=== PATIENT | male | born 1985 | race Caucasian/White ===

== ENCOUNTER 2019-07-02 06:52 | Day surgery (SDC) | payer OTHER ==
[2019-07-02] MEDS ORDERED: CEFAZOLIN 2 GM/50 ML (PMX) 50 ML IVPB (07:00)
[2019-07-02] MEDS: SOD CHLORIDE 0.9% 1,000 ML IV (07:43)
[2019-07-02] MEDS ORDERED: BUPIVACAINE 0.25% (MPF) 30 ML INJ (09:21)
[2019-07-02] MEDS ORDERED: MIDAZOLAM 1 MG/ML 2 ML INJ (09:45)
[2019-07-02] MEDS ORDERED: PROPOFOL 200 MG INJ (09:45)
[2019-07-02] MEDS ORDERED: FENTAnyl 50 MCG/ML VIAL (09:45)
[2019-07-02] MEDS ORDERED: LIDOCAINE 2% (SDV) 5 ML INJ (09:45)
[2019-07-02] MEDS: BUPIVACAINE 0.5% (SDV) 30 ML INJ (10:01)
[2019-07-02] MEDS: LIDOCAINE 2% (MDV) 20 ML INJ (10:02)
[2019-07-02] MEDS: HYDROCODONE/APAP (5/325) TAB PO (10:28)
== END 2019-07-02 11:40 | disposition home or self-care (01) ==
LOC: SDS 06:52
DX: D17.1 Benign lipomatous neoplasm of skin and subcutaneous tissue of trunk (principal); E66.9 Obesity, unspecified
CPT/HCPCS: 14000; 88307